=== PATIENT | female | born 1965 | race Caucasian/White ===

== ENCOUNTER 2018-05-04 04:25 | Emergency (ER) | payer OTHER ==
[~2018-05-04] VITALS: Ht 160 cm; Wt 59.0 kg
[~2018-05-04 04:25] MED LIST: ADAL40KI2 SC; BUPR75TA9 OR; CARI-277 OR; DOCU240C3 OR; IPRIH IN; MORP30TA OR; MORP60TA25 OR; PREG50CA OR; ZIPR40CA8 OR; ZIPR80CA8 OR
[2018-05-04] MEDS ORDERED: ACETAMINOPHEN 325 MG TAB PO ONE ×2 (04:30→04:45)
[2018-05-04 07:32] LABS: Basophils # (auto) 0.1 uL; Eosinophils # (auto) 0.1 uL; Hemoglobin 11.1 g/dL (12.2-16.2); Mean Corpuscular Volume 76.8 fL (80.0-100.0); Nucleated Red Blood Cells % 0.1 %; Red Cell Distribution Width 17.5 % (11.8-14.3)
[2018-05-04 07:34] LABS: Eosinophils % (auto) 0.8 % (0.0-7.0); Hematocrit 35.3 % (36.0-46.0); Lymphocytes % (auto) 16.1 % (10.0-50.0); Mean Corpuscular Hemoglobin 24.1 pg (28.0-32.0); Mean Corpuscular Hgb Conc. 31.4 g/dL (32.0-36.0); Monocytes % (auto) 7.7 % (0.0-12.0); Neutrophils # (auto) 9.2 uL; Neutrophils % (auto) 74.4 % (37.0-80.0); Platelet Count (auto) 453 10^3/uL (140-450); White Blood Cell 12.4 10^3/uL (4.4-10.8)
[2018-05-04 08:03] LABS: Albumin 2.5 g/dL (3.4-5.0); BUN/Creatinine Ratio 19.1; Bilirubin, Total 0.5 mg/dL (0.2-1.0); Calcium 8.5 mg/dL (8.5-10.1); Potassium 3.2 mmol/L (3.5-5.1); Total Protein 8.6 g/dL (6.4-8.2)
== END 2018-05-04 08:02 | disposition left against medical advice (07) ==
LOC: EDBD 04:25 → ER 04:32
DX: M79.605 Pain in left leg (principal); M79.604 Pain in right leg; Z53.21 Procedure and treatment not carried out due to patient leaving prior to being seen by health care provider
CPT/HCPCS: 36415; 80053; 85025; 87040; 87077; 87186